=== PATIENT | male | born 1995 | race Two or more races ===

== ENCOUNTER 2022-04-04 19:56 | Emergency (ER) | payer SELFPAY ==
[2022-04-04] MEDS ORDERED: HYDROCODONE/APAP 10/325 TAB ONE (20:26)
[2022-04-04] MEDS ORDERED: KETOROLAC 30 MG/ML INJ ONE (20:26)
--- NOTE | 2022-04-04 21:06 | EDPHYS ---
Physician Documentation [facility] Name: Jim Davis Age: 26 yrs Sex: Male : 1995 Arrival Date: 04/04/2022 Time: 19:57 Bed 11 Private MD: ED Physician Patrick Kang HPI: 04/04 23:14 This 26 yrs old Male presents to ER via Ambulatory with complaints of Stiff Neck. kb 23:14 The patient or guardian complains of decreased range of motion, pain. The symptoms are kb located on the left side of neck. Onset: The symptoms/episode began/occurred this morning. Context: The problem was sustained at home, The neck injury/problem resulted from sleeping funny. Associated signs and symptoms: The patient has no apparent associated signs or symptoms, The patient denies any alcohol use. The patient is not apparently intoxicated. No neurological symptoms were experienced by the patient prior to arrival in the emergency department. The pain does not radiate. Modifying factors: The symptoms are alleviated by nothing. the symptoms are aggravated by movement. Severity of symptoms: At their worst the symptoms were moderate, in the emergency department the symptoms are unchanged. The patient has not experienced similar symptoms in the past. The patient has not recently seen a physician. Patient states he woke up this morning with pain to left side of the neck. Pain with range of motion the left side. No C-spine tenderness, tenderness on palpation, rigidity. Historical: - Allergies: 20:09 No Known Allergies; lg3 - Home Meds: 20:09 None [Active]; lg3 - PMHx: 20:09 None; lg3 - PSHx: 20:09 None; lg3 - Immunization history:: Adult Immunizations up to date, pfizer X2. - Social history:: Smoking status: Patient reports the use of cigarette tobacco products, smokes one-half pack cigarettes per day, Patient uses alcohol, occasionally. Patient/guardian denies using street drugs. ROS: 23:13 Constitutional: Negative for fever, chills, and weight loss. kb 23:13 Neck: Positive for pain with movement, stiffness. 23:13 All other systems are negative. Exam: 23:13 Constitutional: This is a well developed, well nourished patient who is awake, alert, kb and in no acute distress. Head/Face: Normocephalic, atraumatic. ENT: Moist Mucous membranes Cardiovascular: Regular rate and rhythm with a normal S1 and S2. No gallops, murmurs, or rubs. No pulse deficits. Respiratory: Respirations even and unlabored. No increased work of breathing. Talking in full sentences Skin: Warm, dry with normal turgor. Normal color. MS/ Extremity: Pulses equal, no cyanosis. Neurovascular intact. Full, normal range of motion. Neuro: Awake and alert, GCS 15, oriented to person, place, time, and situation. Moves all extremities. Normal gait. Psych: Awake, alert, with orientation to person, place and time. Behavior, mood, and affect are within normal limits. 23:13 Neck: External neck: is normal, C-spine: appears grossly normal, no vertebral tenderness, no crepitus, ROM/movement: pain, that is moderate, with rotation to the left, limited range of motion, that is moderate, when rotating to the left, nuchal rigidity, is not appreciated. Vital Signs: 20:07 BP 134 / 75; Pulse 82; Resp 19 S; Temp 98.7(O); Pulse Ox 100% on R/A; Weight 99.79 kg lg3 (R); Height 6 ft. 2 in. (187.96 cm) (R); Pain 10/10; 20:20 BP 132 / 75; Pulse 81; Resp 17 S; Pulse Ox 100% on R/A; Pain 10/10; ha1 21:32 BP 132 / 75; Pulse 81; Resp 16 S; Pulse Ox 99% on R/A; ha1 20:07 Body Mass Index 28.25 (99.79 kg, 187.96 cm) lg3 MDM: 20:13 Patient medically screened. kb 23:12 Data reviewed: vital signs, nurses notes. Data interpreted: Pulse oximetry: on room air kb is 99 %. Interpretation: normal. Counseling: I had a detailed discussion with the patient and/or guardian regarding: the historical points, exam findings, and any diagnostic results supporting the discharge/admit diagnosis, the need for outpatient follow up, a family practitioner, to return to the emergency department if symptoms worsen or persist or if there are any questions or concerns that arise at home. Administered Medications: 20:26 Drug: [place] (HYDROcodone-acetaminophen) 10 mg-325 mg 1 tabs Route: PO; ha1 21:20 Follow up: Response: No adverse reaction; Pain is unchanged, physician notified; RASS: ha1 Alert and Calm (0) 20:26 Drug: Ketorolac 60 mg Route: IM; Site: left vastus lateralis; ha1 21:20 Follow up: Response: No adverse reaction; Pain is unchanged, physician notified ha1 21:05 Drug: SOLU-Medrol (methylPREDNISolone sodium succinate) 125 mg Route: IM; Site: right ha1 vastus lateralis; 21:23 Follow up: Response: No adverse reaction; Pain is decreased; RASS: Alert and Calm (0) ha1 Disposition: 04/05 01:30 Co-signature as Attending Physician, Patrick Kang MD I agree with the assessment and kdr plan of care. Disposition Summary: 04/04/22 21:06 Discharge Ordered Location: Home kb Condition: Stable kb Diagnosis - Torticollis kb Followup: kb - With: Emergency Department - When: As needed - Reason: Worsening of condition Followup: kb - With: Private Physician - When: 2 - 3 days - Reason: Recheck today's complaints, Continuance of care, Re-evaluation by your physician Discharge Instructions: - Discharge Summary Sheet kb - Acute Torticollis, Adult kb Forms: - Medication Reconciliation Form kb - Thank You Letter kb - Antibiotic Education kb - Prescription Opioid Use kb Prescriptions: - Ibuprofen 800 mg Oral Tablet - take 1 tablet by ORAL route every 8 hours As needed take with food; 30 tablet; kb Refills: 0, Product Selection Permitted - Prednisone 20 mg Oral Tablet - take 1 tablet by ORAL route once daily for 5 days; 5 tablet; Refills: 0, kb Product Selection Permitted - Cyclobenzaprine 10 mg Oral Tablet - take 1 tablet by ORAL route every 8 hours As needed; 15 tablet; Refills: 0, kb Product Selection Permitted Signatures: Arpita Moura FNP-C FNP-Patrick Spencer MD MD [facility] Cristine Back, SOM RN 3 Kaylin Frances RN RN ha1
--- NOTE | 2022-04-04 21:06 | ER ---
Nurse's Notes [facility] Name: Jim Davis Age: 26 yrs Sex: Male : 1995 Arrival Date: 04/04/2022 Time: 19:57 Bed 11 Private MD: Diagnosis: Torticollis Presentation: 04/04 20:07 Chief complaint: Patient states: woke up this morning with left sided neck pain and lg3 stiffness and it has been getting worse throughout the day. pain 10/10. i have taken ibuprofen at home and put pain patches on today and its not helping. Coronavirus screen: Client denies travel out of the [place] in the last 14 days. At this time, the client does not indicate any symptoms associated with coronavirus-19. Ebola Screen: No symptoms or risks identified at this time. Initial Sepsis Screen: Does the patient meet any 2 criteria? No. Patient's initial sepsis screen is negative. Does the patient have a suspected source of infection? No. Patient's initial sepsis screen is negative. Risk Assessment: Do you want to hurt yourself or someone else? Patient reports no desire to harm self or others. Onset of symptoms was April 04, 2022. 20:07 Method Of Arrival: Ambulatory lg3 20:07 Acuity: EDITH 3 lg3 Triage Assessment: 20:09 General: Appears in no apparent distress. uncomfortable, Behavior is calm, cooperative. lg3 Pain: Complains of pain in neck Pain currently is 10 out of 10 on a pain scale. Noted to be grimacing, guarding, moaning, resistant to movement. EENT: No deficits noted. No signs and/or symptoms were reported regarding the EENT system. Neuro: No deficits noted. Level of Consciousness is awake, alert, obeys commands, Oriented to person, place, time, situation. Cardiovascular: No deficits noted. Denies chest pain, shortness of breath, Capillary refill < 3 seconds Clubbing of nail beds is absent JVD is absent Patient's skin is warm and dry. Respiratory: No deficits noted. Airway is patent Trachea midline Respiratory effort is even, unlabored, Respiratory pattern is regular, symmetrical. GI: No deficits noted. No signs and/or symptoms were reported involving the gastrointestinal system. Abdomen is round non-distended. : No deficits noted. No signs and/or symptoms were reported regarding the genitourinary system. Derm: No deficits noted. No signs and/or symptoms reported regarding the dermatologic system. Skin is intact, is healthy with good turgor, Skin is dry, Skin temperature is warm. Musculoskeletal: Historical: - Allergies: 20:09 No Known Allergies; lg3 - Home Meds: 20:09 None [Active]; lg3 - PMHx: 20:09 None; lg3 - PSHx: 20:09 None; lg3 - Immunization history:: Adult Immunizations up to date, pfizer X2. - Social history:: Smoking status: Patient reports the use of cigarette tobacco products, smokes one-half pack cigarettes per day, Patient uses alcohol, occasionally. Patient/guardian denies using street drugs. Screenin:16 Abuse screen: Denies threats or abuse. Denies injuries from another. Nutritional lg3 screening: No deficits noted. Tuberculosis screening: No symptoms or risk factors identified. Fall Risk None identified. Assessment: 20:15 General: see triage assessment . lg3 21:24 Reassessment: Patient appears in no apparent distress at this time. Patient and/or ha1 family updated on plan of care and expected duration. Pain level reassessed. Patient is alert, oriented x 3, equal unlabored respirations, skin warm/dry/pink. being discharged Patient states feeling better. Vital Signs: 20:07 BP 134 / 75; Pulse 82; Resp 19 S; Temp 98.7(O); Pulse Ox 100% on R/A; Weight 99.79 kg lg3 (R); Height 6 ft. 2 in. (187.96 cm) (R); Pain 10/10; 20:20 BP 132 / 75; Pulse 81; Resp 17 S; Pulse Ox 100% on R/A; Pain 10/10; ha1 21:32 BP 132 / 75; Pulse 81; Resp 16 S; Pulse Ox 99% on R/A; ha1 20:07 Body Mass Index 28.25 (99.79 kg, 187.96 cm) lg3 ED Course: 19:57 Patient arrived in ED. as 20:07 Cristine Back, RN is Primary Nurse. lg3 20:09 Triage completed. lg3 20:09 Arm band placed on right wrist. lg3 20:10 Arpita Moura FNP-C is PHCP. kb 20:10 Patrick Kang MD is Attending Physician. kb 20:16 No provider procedures requiring assistance completed. Patient did not have IV access lg3 during this emergency room visit. 20:17 Patient has correct armband on for positive identification. Call light in reach. Side lg3 rails up X 1. Client placed on continuous cardiac and pulse oximetry monitoring. NIBP monitoring applied. Door closed. Noise minimized. Warm blanket given. Family accompanied patient. Administered Medications: 20:26 Drug: [place] (HYDROcodone-acetaminophen) 10 mg-325 mg 1 tabs Route: PO; ha1 21:20 Follow up: Response: No adverse reaction; Pain is unchanged, physician notified; RASS: ha1 Alert and Calm (0) 20:26 Drug: Ketorolac 60 mg Route: IM; Site: left vastus lateralis; ha1 21:20 Follow up: Response: No adverse reaction; Pain is unchanged, physician notified ha1 21:05 Drug: SOLU-Medrol (methylPREDNISolone sodium succinate) 125 mg Route: IM; Site: right ha1 vastus lateralis; 21:23 Follow up: Response: No adverse reaction; Pain is decreased; RASS: Alert and Calm (0) ha1 Medication: 20:17 VIS not applicable for this client. lg3 Outcome: 20:16 Discharged to home ambulatory. lg3 20:16 Condition: stable 20:16 Discharge instructions given to patient, Instructed on discharge instructions, follow up and referral plans. medication usage, Demonstrated understanding of instructions, follow-up care, medications, Prescriptions given X 2. 21:06 Discharge ordered by . kb 21:35 Patient left the ED. ha1 Signatures: Arpita Moura FNP-C FNP-Nalini Vance as Cristine Back, RN RN lg3 Kaylin Frances RN RN ha1
[2022-04-04] MEDS ORDERED: METHYLPREDNISOLONE 125 MG INJ ONE (21:19)
[2022-04-04 22:49] VITALS: TEMP 98.7
[2022-04-04 22:52] VITALS: BP 132/75
[2022-04-04 22:57] VITALS: O2SAT 99
== END 2022-04-04 21:35 | disposition home or self-care (01) ==
LOC: ER 19:56
DX: M43.6 Torticollis (principal); F17.210 Nicotine dependence, cigarettes, uncomplicated
CPT/HCPCS: 96372; 99283; J2930